=== PATIENT | male | born 1990 | race Caucasian/White ===

== ENCOUNTER 2021-07-19 09:51 | Emergency (ER) | payer MEDICAID, OTHER ==
[~2021-07-19] VITALS: Ht 180.3 cm; Wt 90.9 kg
[2021-07-19 10:04] VITALS: BP 140/85
== END 2021-07-19 12:07 | disposition home or self-care (01) ==
LOC: ER 09:52
DX: S93.402A Sprain of unspecified ligament of left ankle, initial encounter (principal); K70.31 Alcoholic cirrhosis of liver with ascites; R07.81 Pleurodynia; V98.8XXA Other specified transport accidents, initial encounter; Y93.89 Activity, other specified; Y92.89 Other specified places as the place of occurrence of the external cause; Y99.8 Other external cause status
CPT/HCPCS: 29515; 71100; 73610; 99284

== ENCOUNTER 2023-06-17 10:00 | Emergency (ER) | payer MEDICAID ==
[~2023-06-17] VITALS: Ht 177.8 cm; Wt 85.2 kg
[~2023-06-17 10:00] MED LIST: CYAN500T71 PO; FOLI1TAB27 PO; SPIR100T5 PO; THIA50TA10 PO
[2023-06-17 10:16] VITALS: BP 146/80; PULSE 98; RESP 18; TEMP 98; O2SAT 98
== END 2023-06-17 10:59 | disposition left against medical advice (07) ==
LOC: ER 10:01
DX: M25.562 Pain in left knee (principal); M79.602 Pain in left arm; Z53.21 Procedure and treatment not carried out due to patient leaving prior to being seen by health care provider; W18.39XA Other fall on same level, initial encounter; Y93.89 Activity, other specified; Y92.89 Other specified places as the place of occurrence of the external cause; Y99.8 Other external cause status
CPT/HCPCS: 73090; 99281